=== PATIENT | female | born 1990 | race Two or more races ===

== ENCOUNTER 2018-09-08 21:28 | Emergency (ER) | payer MEDICAID ==
[~2018-09-08] VITALS: Ht 154.9 cm; Wt 56.7 kg
[2018-09-08 21:44] VITALS: BP 136/85
[2018-09-08] MEDS ORDERED: IPRATROPIUM NEB FS 0.5 MG/2.5 ML AMPUL.NEB ONE (22:18)
[2018-09-08] MEDS ORDERED: ALBUTEROL FS 2.5 MG/3 ML VIAL.NEB ONE (22:18)
[2018-09-08] MEDS ORDERED: ALBUTEROL FS 2.5 MG/3 ML VIAL.NEB NEB ONE (22:30)
[2018-09-08] MEDS ORDERED: IPRATROPIUM NEB FS 0.5 MG/2.5 ML AMPUL.NEB NEB ONE (22:30)
== END 2018-09-08 23:24 | disposition home or self-care (01) ==
LOC: ER 21:34
DX: J20.9 Acute bronchitis, unspecified (principal)
CPT/HCPCS: 71045; 94640; 99283; A4606; Z7610